=== PATIENT | female | born 1975 | race Two or more races ===

== ENCOUNTER 2017-10-18 11:27 | Outpatient (CLI) | payer OTHER ==
[~2017-10-18 11:27] MED LIST: FEOSOL1 TAB PO; METFORMIN HYDRO25 GM; PRENATAL1 TAB PO
== END 2017-10-18 11:37 | disposition home or self-care (01) ==
LOC: MAMO-SONO 11:27
DX: N64.4 Mastodynia (principal); Z12.31 Encounter for screening mammogram for malignant neoplasm of breast; N94.89 Other specified conditions associated with female genital organs and menstrual cycle

== ENCOUNTER 2019-09-11 07:10 | Outpatient (CLI) | payer OTHER | END 2019-09-11 07:40 | disposition home or self-care (01) | LOC: MAMO-SONO 07:10 | DX: Z12.31 Encounter for screening mammogram for malignant neoplasm of breast (principal); N64.4 Mastodynia; N93.8 Other specified abnormal uterine and vaginal bleeding ==